=== PATIENT | male | born 1950 | race Caucasian/White ===

== ENCOUNTER → 2016-11-05 | Outpatient (CLI) | payer MEDICARE ==
[~2016-11-05] MED LIST: ALLO300T PO; AMLO5TAB2 PO; ATOR20TA9 PO; CARV-39 PO; CARV25TA12 PO; CLOP75TA PO; CLOP75TA22 PO; FURO-92 PO; GLIM4TAB2 PO; GLIP5TAB10 PO; HYDR-3342 PO; INDO50CA PO; LINA5TAB PO; LISI-170 PO; METF500T4 PO; METH4TAB2 PO; SPIR25TA PO; SPIR25TA3 PO; TAMS0.4C2 PO
== END | disposition home or self-care (01) ==
LOC: CFH 08:44
PROVIDERS: ATTEND Internal Medicine Cardiovascular Disease
DX: I35.8 Other nonrheumatic aortic valve disorders (principal); I34.0 Nonrheumatic mitral (valve) insufficiency; I37.1 Nonrheumatic pulmonary valve insufficiency; I07.1 Rheumatic tricuspid insufficiency; E10.8 Type 1 diabetes mellitus with unspecified complications; I10 Essential (primary) hypertension; Z87.891 Personal history of nicotine dependence
CPT/HCPCS: 93306

== ENCOUNTER 2017-03-11 10:42 | Inpatient (IN) | payer MEDICARE ==
[~2017-03-11] VITALS: Ht 175.3 cm; Wt 84.3 kg
[2017-03-11] MEDS ORDERED: SODIUM CHLORIDE 0.9% 1,000ML IVBOLUS ONE (11:30)
[2017-03-11] MEDS ORDERED: SODIUM CHLORIDE FLUSH 10ML SYR IVF ONE (11:30)
[2017-03-11 11:56] LABS: PH, VENOUS 7.382 pH (7.320-7.420)
[2017-03-11 11:57] LABS: FIO2 ROOM AIR %; HEMOGLOBIN 14.5 g/dL (13.7-18.0); WHITE BLOOD COUNT 7.4 x10^3/uL (3.4-10)
[2017-03-11 12:08] LABS: ASPARTATE AMINO TRANSFERASE 14 U/L (15-37); BLOOD UREA NITROGEN 28 mg/dL (7-18)
[2017-03-11] MEDS ORDERED: CEFTRIAXONE PMX 1GM/50ML 50 ML ONE (12:25)
[2017-03-11] MEDS ORDERED: CEFTRIAXONE PMX 1GM/50ML 50 ML IVPB ONE (12:30)
[2017-03-11] MEDS ORDERED: INSULIN REGULAR 100 UNITS/ML, 3ML VIAL SQ-INSULIN ONE (13:30)
[2017-03-11] MEDS ORDERED: INSULIN REGULAR 100 UNITS/ML, 3ML VIAL ONE (13:45)
[2017-03-11] MEDS: POTASSIUM CHLORIDE 10 MEQ in SODIUM CHLORIDE 0.9% 1,000 ML IV SCH (14:30)
[2017-03-11] MEDS ORDERED: DEXTROSE 4 GM TAB.CHEW PO PRN (14:30)
[2017-03-11] MEDS ORDERED: SODIUM CHLORIDE FLUSH 10ML SYR IVF PRN (14:30)
[2017-03-11] MEDS ORDERED: ONDANSETRON ODT 4 MG PO PRN (14:30)
[2017-03-11] MEDS ORDERED: DOCUSATE 100 MG CAPSULE PO PRN (14:30)
[2017-03-11] MEDS ORDERED: GLUCAGON 1 MG IM PRN (14:30)
[2017-03-11] MEDS: CEFTAROLINE 400 MG in SODIUM CHLORIDE 0.9% 100 ML IV SCH ×2 (14:30→21:32)
[2017-03-11] MEDS ORDERED: LABETALOL 5MG/ML, 20ML IVPush PRN (14:30)
[2017-03-11] MEDS ORDERED: PHARMACY MAY ADJ FOR RENAL FX MC PRN (14:30)
[2017-03-11] MEDS ORDERED: ONDANSETRON 2MG/ML, 2ML IVPush PRN (14:30)
[2017-03-11] MEDS ORDERED: ACETAMINOPHEN 325 MG TABLET PO PRN (14:30)
[2017-03-11] MEDS ORDERED: POLYETHYLENE GLYCOL 17 GM PACKET PO PRN (14:30)
[2017-03-11] MEDS ORDERED: BISACODYL 10 MG SUPP PR PRN (14:30)
[2017-03-11] MEDS ORDERED: DEXTROSE 50%, 50ML SYRINGE IVPush PRN (14:30)
[2017-03-11] MEDS: INSULIN ASPART 100 UNITS/ML, PEN SQ-INSULIN SCH ×2 (16:00→20:58)
[2017-03-11] MEDS ORDERED: INSULIN DETEMIR 100 UNITS/ML, PEN SQ-INSULIN SCH (17:00)
[2017-03-11] MEDS: HEPARIN 5,000 UNITS/ML, 1ML SQ SCH (18:33)
[2017-03-11 20:37] VITALS: BP 103/71
[2017-03-11] MEDS: CARVEDILOL 25 MG TABLET PO SCH (20:52)
[2017-03-11] MEDS: ATORVASTATIN 20 MG TABLET PO SCH (20:53)
[2017-03-11] MEDS: TAMSULOSIN 0.4 MG CAP.ER.24H PO SCH (20:53)
[2017-03-11] MEDS: SODIUM CHLORIDE FLUSH 10ML SYR IVF SCH (21:00)
[2017-03-12] MEDS: POTASSIUM CHLORIDE 10 MEQ in SODIUM CHLORIDE 0.9% 1,000 ML IV SCH ×3 (00:48→17:22)
[2017-03-12 00:50] VITALS: BP 150/79
[2017-03-12] MEDS: HEPARIN 5,000 UNITS/ML, 1ML SQ SCH ×3 (05:23→20:59)
[2017-03-12 05:42] LABS: BLOOD UREA NITROGEN 17 mg/dL (7-18)
[2017-03-12 06:01] LABS: HEMATOCRIT 41.7 % (39.2-51.8); HEMOGLOBIN 14.2 g/dL (13.7-18.0); WHITE BLOOD COUNT 8.6 x10^3/uL (3.4-10)
[2017-03-12 06:54] VITALS: BP 180/95
[2017-03-12] MEDS: SODIUM CHLORIDE FLUSH 10ML SYR IVF SCH ×2 (08:44→20:50)
[2017-03-12] MEDS: CARVEDILOL 25 MG TABLET PO SCH ×2 (08:44→20:20)
[2017-03-12] MEDS: CLOPIDOGREL 75 MG TABLET PO SCH (08:45)
[2017-03-12] MEDS: AMLODIPINE 5 MG TABLET PO SCH (08:45)
[2017-03-12] MEDS ORDERED: GLIMEPIRIDE 4 MG TABLET PO SCH (09:00)
[2017-03-12] MEDS: CEFTAROLINE 400 MG in SODIUM CHLORIDE 0.9% 100 ML IV SCH ×2 (09:55→20:59)
[2017-03-12] MEDS: INSULIN ASPART 100 UNITS/ML, PEN SQ-INSULIN SCH ×4 (09:55→20:20)
[2017-03-12 15:45] VITALS: BP 169/97
[2017-03-12] MEDS ORDERED: DEXTROSE 4 GM TAB.CHEW PO PRN (16:30)
[2017-03-12] MEDS ORDERED: DEXTROSE 50%, 50ML SYRINGE IVPush PRN (16:30)
[2017-03-12] MEDS ORDERED: ONDANSETRON ODT 4 MG PO PRN (16:30)
[2017-03-12] MEDS ORDERED: ONDANSETRON 2MG/ML, 2ML IVPush PRN (16:30)
[2017-03-12] MEDS ORDERED: BISACODYL 10 MG SUPP PR PRN (16:30)
[2017-03-12] MEDS ORDERED: DOCUSATE 100 MG CAPSULE PO PRN (16:30)
[2017-03-12] MEDS ORDERED: LABETALOL 5MG/ML, 20ML IVPush PRN (16:30)
[2017-03-12] MEDS ORDERED: GLUCAGON 1 MG IM PRN (16:30)
[2017-03-12] MEDS ORDERED: PHARMACY MAY ADJ FOR RENAL FX MC PRN (16:30)
[2017-03-12] MEDS ORDERED: POLYETHYLENE GLYCOL 17 GM PACKET PO PRN (16:30)
[2017-03-12] MEDS ORDERED: INSULIN DETEMIR 100 UNITS/ML, PEN SQ-INSULIN SCH (17:00)
[2017-03-12 18:28] VITALS: BP 150/83
[2017-03-12] MEDS: TAMSULOSIN 0.4 MG CAP.ER.24H PO SCH (20:20)
[2017-03-12] MEDS: ATORVASTATIN 20 MG TABLET PO SCH (20:20)
[2017-03-12] MEDS: TEMAZEPAM 15 MG CAPSULE PO PRN (20:59)
[2017-03-13] MEDS: POTASSIUM CHLORIDE 10 MEQ in SODIUM CHLORIDE 0.9% 1,000 ML IV SCH ×3 (01:34→16:56)
[2017-03-13 01:38] VITALS: BP 148/73
[2017-03-13] MEDS: HEPARIN 5,000 UNITS/ML, 1ML SQ SCH ×2 (05:29→16:57)
[2017-03-13 06:00] LABS: BLOOD UREA NITROGEN 10 mg/dL (7-18)
[2017-03-13 06:50] VITALS: BP 129/87
[2017-03-13] MEDS: SODIUM CHLORIDE FLUSH 10ML SYR IVF SCH ×2 (09:00→21:05)
[2017-03-13] MEDS: CEFTAROLINE 400 MG in SODIUM CHLORIDE 0.9% 100 ML IV SCH ×2 (09:03→21:05)
[2017-03-13] MEDS: GLIMEPIRIDE 4 MG TABLET PO SCH (09:04)
[2017-03-13] MEDS: AMLODIPINE 5 MG TABLET PO SCH (09:04)
[2017-03-13] MEDS: INSULIN ASPART 100 UNITS/ML, PEN SQ-INSULIN SCH ×4 (09:04→21:00)
[2017-03-13] MEDS: CARVEDILOL 25 MG TABLET PO SCH ×2 (09:04→21:10)
[2017-03-13] MEDS: CLOPIDOGREL 75 MG TABLET PO SCH (09:05)
[2017-03-13 16:51] VITALS: BP 135/73
[2017-03-13] MEDS: INSULIN DETEMIR 100 UNITS/ML, PEN SQ-INSULIN SCH (16:57)
[2017-03-13 21:04] VITALS: BP 141/82
[2017-03-13] MEDS: ATORVASTATIN 20 MG TABLET PO SCH (21:08)
[2017-03-13] MEDS: TAMSULOSIN 0.4 MG CAP.ER.24H PO SCH (21:09)
[2017-03-13] MEDS: TEMAZEPAM 15 MG CAPSULE PO PRN (22:13)
[2017-03-14] MEDS: HEPARIN 5,000 UNITS/ML, 1ML SQ SCH ×3 (00:53→17:16)
[2017-03-14] MEDS: POTASSIUM CHLORIDE 10 MEQ in SODIUM CHLORIDE 0.9% 1,000 ML IV SCH ×2 (00:55→09:09)
[2017-03-14 01:32] VITALS: BP 121/69
[2017-03-14 07:48] VITALS: BP 154/95
[2017-03-14] MEDS: INSULIN ASPART 100 UNITS/ML, PEN SQ-INSULIN SCH ×4 (07:58→21:00)
[2017-03-14] MEDS: CLOPIDOGREL 75 MG TABLET PO SCH (08:01)
[2017-03-14] MEDS: GLIMEPIRIDE 4 MG TABLET PO SCH (08:01)
[2017-03-14] MEDS: AMLODIPINE 5 MG TABLET PO SCH (08:01)
[2017-03-14] MEDS: CARVEDILOL 25 MG TABLET PO SCH ×2 (08:01→21:10)
[2017-03-14] MEDS: ACETAMINOPHEN 325 MG TABLET PO PRN (08:02)
[2017-03-14] MEDS: SODIUM CHLORIDE FLUSH 10ML SYR IVF SCH ×2 (08:02→21:10)
[2017-03-14] MEDS: CEFTAROLINE 400 MG in SODIUM CHLORIDE 0.9% 100 ML IV SCH (10:13)
[2017-03-14] MEDS: INSULIN DETEMIR 100 UNITS/ML, PEN SQ-INSULIN SCH (17:17)
[2017-03-14 17:21] VITALS: BP 174/103
[2017-03-14 18:47] VITALS: BP 142/82
[2017-03-14] MEDS: CEFAZOLIN PMX 1GM/50ML 50 ML IV SCH (19:54)
[2017-03-14] MEDS: TAMSULOSIN 0.4 MG CAP.ER.24H PO SCH (21:10)
[2017-03-14] MEDS: ATORVASTATIN 20 MG TABLET PO SCH (21:10)
[2017-03-15] MEDS: TEMAZEPAM 15 MG CAPSULE PO PRN ×2 (00:51→21:09)
[2017-03-15] MEDS: HEPARIN 5,000 UNITS/ML, 1ML SQ SCH ×3 (00:51→16:40)
[2017-03-15 01:24] VITALS: BP 110/70
[2017-03-15] MEDS: CEFAZOLIN PMX 1GM/50ML 50 ML IV SCH ×3 (03:47→20:20)
[2017-03-15] MEDS: ACETAMINOPHEN 325 MG TABLET PO PRN ×2 (04:20→08:22)
[2017-03-15 05:18] LABS: HEMATOCRIT 41.4 % (39.2-51.8); HEMOGLOBIN 14.1 g/dL (13.7-18.0); WHITE BLOOD COUNT 7.2 x10^3/uL (3.4-10)
[2017-03-15 05:30] LABS: BLOOD UREA NITROGEN 16 mg/dL (7-18)
[2017-03-15 07:18] VITALS: BP 128/66
[2017-03-15] MEDS: INSULIN ASPART 100 UNITS/ML, PEN SQ-INSULIN SCH ×4 (08:21→20:21)
[2017-03-15] MEDS: CARVEDILOL 25 MG TABLET PO SCH ×2 (08:21→20:20)
[2017-03-15] MEDS: SODIUM CHLORIDE FLUSH 10ML SYR IVF SCH ×2 (08:21→20:20)
[2017-03-15] MEDS: ENALAPRIL 2.5MG TABLET PO SCH (08:22)
[2017-03-15] MEDS: CLOPIDOGREL 75 MG TABLET PO SCH (08:22)
[2017-03-15] MEDS: AMLODIPINE 5 MG TABLET PO SCH (08:22)
[2017-03-15 13:46] VITALS: BP 102/67
[2017-03-15] MEDS: INSULIN DETEMIR 100 UNITS/ML, PEN SQ-INSULIN SCH (16:40)
[2017-03-15 18:32] VITALS: BP 111/73
[2017-03-15] MEDS: TAMSULOSIN 0.4 MG CAP.ER.24H PO SCH (20:20)
[2017-03-15] MEDS: ATORVASTATIN 20 MG TABLET PO SCH (20:20)
[2017-03-16] MEDS: HEPARIN 5,000 UNITS/ML, 1ML SQ SCH ×3 (01:22→17:21)
[2017-03-16 02:00] VITALS: BP 127/81
[2017-03-16] MEDS: CEFAZOLIN PMX 1GM/50ML 50 ML IV SCH ×3 (04:45→20:05)
[2017-03-16 06:22] LABS: BLOOD UREA NITROGEN 22 mg/dL (7-18)
[2017-03-16 06:56] VITALS: BP 121/72
[2017-03-16] MEDS: INSULIN ASPART 100 UNITS/ML, PEN SQ-INSULIN SCH ×4 (07:45→21:23)
[2017-03-16] MEDS: SODIUM CHLORIDE FLUSH 10ML SYR IVF SCH ×2 (07:45→20:05)
[2017-03-16] MEDS: CLOPIDOGREL 75 MG TABLET PO SCH (07:46)
[2017-03-16] MEDS: CARVEDILOL 25 MG TABLET PO SCH ×2 (07:46→20:06)
[2017-03-16] MEDS: AMLODIPINE 5 MG TABLET PO SCH (07:46)
[2017-03-16] MEDS: ENALAPRIL 2.5MG TABLET PO SCH (10:44)
[2017-03-16 10:45] VITALS: BP 127/74
[2017-03-16 17:18] VITALS: BP 124/80
[2017-03-16] MEDS: INSULIN DETEMIR 100 UNITS/ML, PEN SQ-INSULIN SCH (17:21)
[2017-03-16 18:30] VITALS: BP 126/77
[2017-03-16] MEDS: ATORVASTATIN 20 MG TABLET PO SCH (20:06)
[2017-03-16] MEDS: TAMSULOSIN 0.4 MG CAP.ER.24H PO SCH (20:06)
[2017-03-16] MEDS: VANCOMYCIN 50 MG/ML ORAL SUSP PO SCH (21:22)
[2017-03-16] MEDS: TEMAZEPAM 15 MG CAPSULE PO PRN (23:08)
[2017-03-17 00:43] VITALS: BP 107/58
[2017-03-17] MEDS: HEPARIN 5,000 UNITS/ML, 1ML SQ SCH ×3 (00:49→17:25)
[2017-03-17] MEDS: VANCOMYCIN 50 MG/ML ORAL SUSP PO SCH ×4 (03:30→20:02)
[2017-03-17] MEDS: CEFAZOLIN PMX 1GM/50ML 50 ML IV SCH ×3 (04:00→20:02)
[2017-03-17 06:06] LABS: BLOOD UREA NITROGEN 25 mg/dL (7-18)
[2017-03-17 08:08] VITALS: BP 154/90
[2017-03-17] MEDS: SODIUM CHLORIDE FLUSH 10ML SYR IVF SCH ×2 (08:10→20:02)
[2017-03-17] MEDS: INSULIN ASPART 100 UNITS/ML, PEN SQ-INSULIN SCH ×4 (08:10→21:25)
[2017-03-17] MEDS: CARVEDILOL 25 MG TABLET PO SCH ×2 (08:10→20:02)
[2017-03-17] MEDS: AMLODIPINE 5 MG TABLET PO SCH (08:11)
[2017-03-17] MEDS: ENALAPRIL 2.5MG TABLET PO SCH (08:11)
[2017-03-17] MEDS: CLOPIDOGREL 75 MG TABLET PO SCH (08:11)
[2017-03-17 16:54] VITALS: BP 133/89
[2017-03-17] MEDS: INSULIN DETEMIR 100 UNITS/ML, PEN SQ-INSULIN SCH (17:25)
[2017-03-17 19:56] VITALS: BP 124/70
[2017-03-17] MEDS: ATORVASTATIN 20 MG TABLET PO SCH (20:02)
[2017-03-17] MEDS: TAMSULOSIN 0.4 MG CAP.ER.24H PO SCH (20:02)
[2017-03-18] MEDS: HEPARIN 5,000 UNITS/ML, 1ML SQ SCH ×3 (01:01→17:32)
[2017-03-18 01:02] VITALS: BP 127/72
[2017-03-18] MEDS: VANCOMYCIN 50 MG/ML ORAL SUSP PO SCH ×3 (03:51→17:37)
[2017-03-18] MEDS: CEFAZOLIN PMX 1GM/50ML 50 ML IV SCH ×2 (03:51→12:33)
[2017-03-18 05:23] LABS: BLOOD UREA NITROGEN 24 mg/dL (7-18)
[2017-03-18 06:36] VITALS: BP 141/81
[2017-03-18] MEDS: INSULIN ASPART 100 UNITS/ML, PEN SQ-INSULIN SCH ×3 (08:56→17:25)
[2017-03-18] MEDS: ENALAPRIL 2.5MG TABLET PO SCH (08:58)
[2017-03-18] MEDS: CARVEDILOL 25 MG TABLET PO SCH (08:58)
[2017-03-18] MEDS: CLOPIDOGREL 75 MG TABLET PO SCH (08:58)
[2017-03-18] MEDS: AMLODIPINE 5 MG TABLET PO SCH (08:59)
[2017-03-18 12:00] VITALS: BP 137/77
[2017-03-18] MEDS ORDERED: AMOX1TAB64 PO (12:10)
[2017-03-18] MEDS ORDERED: INSU100I28 SQ-INSULIN (12:10)
[2017-03-18] MEDS ORDERED: INSU100I18 SQ-INSULIN (12:10)
[2017-03-18] MEDS ORDERED: ENAL2.5T PO (12:10)
[2017-03-18] MEDS ORDERED: VANC125C11 PO (12:10)
[2017-03-18] MEDS ORDERED: METR500T PO (12:24)
[2017-03-18] MEDS: SODIUM CHLORIDE FLUSH 10ML SYR IVF SCH (12:33)
== END 2017-03-18 17:58 | disposition home or self-care (01) | DRG 371 ==
LOC: ED 13:39 → EDIP 14:10 → 3NE 16:23
PROVIDERS: ADMIT Internal Medicine; ATTEND Internal Medicine
DX: A04.7 Enterocolitis due to Clostridium difficile (principal); N17.0 Acute kidney failure with tubular necrosis; L03.113 Cellulitis of right upper limb; I50.32 Chronic diastolic (congestive) heart failure; I13.0 Hypertensive heart and chronic kidney disease with heart failure and stage 1 through stage 4 chronic kidney disease, or unspecified chronic kidney disease; E87.1 Hypo-osmolality and hyponatremia; R78.81 Bacteremia; L03.114 Cellulitis of left upper limb; E11.22 Type 2 diabetes mellitus with diabetic chronic kidney disease; E11.65 Type 2 diabetes mellitus with hyperglycemia; E86.0 Dehydration; F12.90 Cannabis use, unspecified, uncomplicated; I44.7 Left bundle-branch block, unspecified; M10.9 Gout, unspecified; N18.3 Chronic kidney disease, stage 3 (moderate); N40.0 Benign prostatic hyperplasia without lower urinary tract symptoms; Z79.4 Long term (current) use of insulin; Z82.3 Family history of stroke; Z82.49 Family history of ischemic heart disease and other diseases of the circulatory system; Z83.3 Family history of diabetes mellitus; Z86.73 Personal history of transient ischemic attack (TIA), and cerebral infarction without residual deficits; Z87.891 Personal history of nicotine dependence
CPT/HCPCS: 36415; 80048; 80053; 82010; 82803; 82962; 83036; 83605; 85025; 87040; 87147; 87181; 87324; 93005; 96361; 96365; 96372; J0690; J0696; J0712; J1644; J1815; J3370; J3480; J7030

== ENCOUNTER → 2018-02-13 | Outpatient (CLI) | payer MEDICARE ==
[~2018-02-13] MED LIST changes: +AMOX1TAB64 PO; -CLOP75TA22 PO; +CLOP75TA52 PO; +ENAL2.5T PO; +INSU100I18 SQ-INSULIN; +INSU100I28 SQ-INSULIN; -METF500T4 PO; +METF500T5 PO; +METR500T PO; +VANC125C11 PO
== END | disposition home or self-care (01) ==
LOC: CVU 14:33
PROVIDERS: ATTEND Surgery
DX: I65.23 Occlusion and stenosis of bilateral carotid arteries (principal); I10 Essential (primary) hypertension; E78.5 Hyperlipidemia, unspecified; E11.9 Type 2 diabetes mellitus without complications; Z87.891 Personal history of nicotine dependence
CPT/HCPCS: 93880